=== PATIENT | female | born 1955 | race Caucasian/White ===

== ENCOUNTER → 2021-07-30 08:32 | Outpatient (CLI) | payer MEDICARE, OTHER, SELFPAY ==
--- NOTE | 2021-07-30 08:35 | DI.MRI.S_ITS ---
PROCEDURE: MR CERVICAL SPINE WO CON INDICATIONS: LOW BACK PAIN/CERVICALGIA TECHNIQUE: Noncontrast sagittal T1 spin echo and T2 fast spin echo, sagittal STIR, foraminal oblique sagittal T2 fast spin echo, and axial gradient echo or T2 fast spin echo through the cervical spine. COMPARISON: [facility], MR, MR LUMBAR SPINE WO CON, 07/30/2021, 10:08. FINDINGS: Image quality: This examination is limited by involuntary motion artifact. Alignment and Curvature: There is normal bony alignment. Bone Marrow: Marrow demonstrates normal overall signal. Spinal Cord: Visualized spinal cord has normal size and signal. No cerebellar tonsillar herniation. Paraspinous Soft Tissues: No paravertebral masses. Prevertebral soft tissues are normal in thickness. C2-C3: Mild loss of disc height is seen. Loss of disc signal is seen. Moderate disc osteophyte complex is seen, which is eccentric to the right. Mild facet joint hypertrophy is seen. There is moderate to severe right-sided and no left-sided neural foraminal narrowing. No central canal narrowing is seen. C3-C4: Moderate loss of disc height is seen. Loss of disc signal is seen. Moderate generalized disc osteophyte complex is seen. Uncovertebral joint hypertrophy is seen at this level. Moderate facet joint hypertrophy is seen. There is moderate to severe bilateral neural foraminal narrowing. Mild to moderate central canal narrowing is seen. C4-C5: At least moderate loss of disc height and disc signal can be seen. At least moderate disc osteophyte complex is seen, which is eccentric to the right. Reactive marrow endplate changes are seen, which are hyperintense on T1-weighted and T2-weighted imaging and most consistent with fatty metaplasia (Modic type II changes). At least moderate facet hypertrophy is seen at this level. There is moderate to severe bilateral neural foraminal narrowing seen, right worse than left. At least moderate central canal narrowing is seen. There is a minimal amount of associated mass effect upon the ventral spinal cord. C5-C6: Moderate to severe loss of disc height and disc signal can be seen. At least moderate disc osteophyte complex is seen. Uncovertebral joint hypertrophy is seen at this level. Moderate bilateral neural foraminal narrowing is seen. There is at least moderate bilateral neural foraminal narrowing seen. Moderate central canal narrowing is seen. C6-C7: At least moderate loss of disc height and disc signal can be seen. Moderate generalized disc osteophyte complex is seen. Is Moderate facet joint hypertrophy is seen. There is at least moderate bilateral neural foraminal narrowing seen. Mild to moderate central canal narrowing is seen. C7-T1: Moderate loss of disc height is seen. Loss of disc signal is seen. Reactive marrow endplate changes are seen, which are hyperintense on T1-weighted and T2-weighted imaging and most consistent with fatty metaplasia (Modic type II changes). Moderate disc osteophyte complex is seen, which is eccentric to the right. Mild to moderate facet hypertrophy is seen. There is moderate right-sided and mild left-sided neural foraminal narrowing. Mild central canal narrowing is seen. IMPRESSION: Multiple levels of relatively prominent cervical spine degenerative change can be seen, which are overall worst at the C4-C5 level. Dictated by: Merlin Dubose M.D. on 07/30/2021 at 9:58 Approved by: Merlin Dubose M.D. on 07/30/2021 at 10:03
--- NOTE | 2021-07-30 08:35 | DI.MRI.S_ITS ---
PROCEDURE: MR LUMBAR SPINE WO CON INDICATIONS: LOW BACK PAIN/CERVICALGIA TECHNIQUE: Noncontrast sagittal T1 spin echo and T2 fast echo, sagittal STIR, axial T1 and T2 fast spin echo through the lumbar spine. In cases with scoliosis, additional coronal T2 fast spin echo may be performed. COMPARISON: [facility], MR, MR CERVICAL SPINE WO CON, 07/30/2021, 9:49. FINDINGS: Image quality: This examination is limited by involuntary motion artifact. Alignment and Curvature: There is normal bony alignment. Bone Marrow: Marrow is of normal overall signal. No acute vertebral body compression fractures. The nerve roots distal to the L4-L5 level appear irregular. Spinal Cord: Conus medullaris terminates at the L1 level. Visualized cord demonstrates normal signal and size. Paraspinous Soft Tissues: No paravertebral masses. T12-L1: Normal appearance. L1-L2: Normal appearance. L2-L3: The disc height is well-preserved. Loss of disc signal is seen at this level. Mild generalized disc bulge is seen. Mild facet joint hypertrophy is seen. Mild to moderate bilateral neural foraminal narrowing can be seen. Minimal central canal narrowing is seen. L3-L4: Mild loss of disc height is seen. Loss of disc signal is seen. Mild to moderate disc bulge is seen, which is eccentric to the right. There is a superimposed central disc protrusion. Mild facet joint hypertrophy is seen. There is at least moderate right-sided and moderate left-sided neural foraminal narrowing. Moderate central canal narrowing is seen. L4-L5: Moderate loss of disc height is seen. Loss of disc signal is seen. Moderate to prominent disc bulge is seen, with a central disc protrusion. Reactive marrow endplate changes are seen which are hypointense on T1-weighted imaging and hyperintense on T2 weighted imaging, which is most consistent with edema (Modic type I changes). At least moderate facet hypertrophy is seen. Associated hypertrophy of the ligamentum flavum can be seen. There is moderate to severe bilateral neural foraminal narrowing seen, right worse than left. There is a degree of compression seen upon the exiting nerve roots. There is severe central canal narrowing is seen, as on series 6, image 22. L5-S1: Moderate to severe loss of disc height and disc signal can be seen. Reactive marrow endplate changes are seen, which are hyperintense on T1-weighted and T2-weighted imaging and most consistent with fatty metaplasia (Modic type II changes). Moderate generalized disc bulge is seen. There is a superimposed central disc protrusion. Moderate facet joint hypertrophy is seen. There is at least moderate bilateral neural foraminal narrowing seen, left worse than right. A minimal degree of compression can be seen upon the exiting nerve roots. Moderate central canal narrowing is seen. IMPRESSION: Lumbar spine degenerative changes are seen, which are worst at the L4-L5 level, where there is severe central canal narrowing and moderate to severe bilateral neural foraminal narrowing. Several sites of significant neural foraminal narrowing can be seen, with associated exiting nerve root compression. The nerve roots distal to the L4-L5 level appear tangled and irregular. Concern is raised for arachnoiditis. Dictated by: Merlin Dubose M.D. on 07/30/2021 at 10:03 Approved by: Merlin Dubose M.D. on 07/30/2021 at 10:07
== END ==
PROVIDERS: PCP Family Medicine; Referring Provider Physician Assistant; Visit Provider Physician Assistant
DX: M47.812 Spondylosis without myelopathy or radiculopathy, cervical region (principal); M47.816 Spondylosis without myelopathy or radiculopathy, lumbar region; M48.061 Spinal stenosis, lumbar region without neurogenic claudication; M54.50 Low back pain, unspecified; M54.2 Cervicalgia
CPT/HCPCS: 72141; 72148

== ENCOUNTER → 2022-04-11 11:11 | Outpatient (CLI) | payer MEDICARE, OTHER, SELFPAY ==
--- NOTE | 2022-04-11 | DI.US.S_ITS ---
PROCEDURE: US PERIPH VENOUS LOW EXTREM LT INDICATIONS: EVALUATE STATUS OF DVT TECHNIQUE: Real-time imaging, as well as color and pulse Doppler interrogation, were performed of the lower extremity deep veins from the inguinal ligament to the popliteal fossa. COMPARISON: None. FINDINGS: The common femoral, femoral and popliteal veins are normally compressible, and free of intraluminal thrombus. Color and pulse Doppler demonstrate normal phasic intraluminal flow. There is normal augmentation response to distal compression maneuver. IMPRESSION: No deep vein thrombosis of the left lower extremity. Dictated by: Demetria Rodriguez M.D. on 04/11/2022 at 13:55 Approved by: Demetria Rodriguez M.D. on 04/11/2022 at 13:57
== END ==
PROVIDERS: PCP Family Medicine; Referring Provider Family Medicine; Visit Provider Family Medicine
DX: I82.402 Acute embolism and thrombosis of unspecified deep veins of left lower extremity (principal)
CPT/HCPCS: 93971